=== PATIENT | male | born 1990 | race Caucasian/White ===

== ENCOUNTER 2023-08-20 08:29 | Outpatient (CLI) | payer OTHER ==
[2023-08-20] MEDS ORDERED: Iopamidol 300 61% 100 ML VIAL FS ONE (14:19)
== END 2023-08-20 08:30 | disposition home or self-care (01) ==
LOC: CSHCT 08:29
PROVIDERS: ATTEND Internal Medicine
DX: R22.1 Localized swelling, mass and lump, neck (principal); M54.6 Pain in thoracic spine; M50.90 Cervical disc disorder, unspecified, unspecified cervical region; M47.812 Spondylosis without myelopathy or radiculopathy, cervical region; M48.02 Spinal stenosis, cervical region; M43.8X2 Other specified deforming dorsopathies, cervical region; M41.84 Other forms of scoliosis, thoracic region
CPT/HCPCS: 70491; 72141; 72146; Q9967

== ENCOUNTER 2024-07-16 09:34 | Outpatient (CLI) | payer OTHER | END 2024-07-16 09:35 | disposition home or self-care (01) | LOC: CSHCP 09:34 | PROVIDERS: ATTEND Internal Medicine | DX: J45.998 Other asthma (principal) | CPT/HCPCS: 94010; 94726; 94729; 94760 ==

== ENCOUNTER 2025-03-12 09:32 | Emergency (ER) | payer OTHER | END 2025-03-12 10:31 | disposition home or self-care (01) | LOC: CSHERS 09:32 | DX: S39.012A Strain of muscle, fascia and tendon of lower back, initial encounter (principal); M54.41 Lumbago with sciatica, right side; X58.XXXA Exposure to other specified factors, initial encounter | CPT/HCPCS: 99282 ==